=== PATIENT | male | born 1940 | race Caucasian/White ===

== ENCOUNTER 2016-12-09 09:14 | Outpatient (CLI) | payer MEDICARE, BC | END 2016-12-09 09:15 | LOC: OUT 09:14 | PROVIDERS: ATTEND Colon & Rectal Surgery | DX: Z98.890 Other specified postprocedural states (principal) | CPT/HCPCS: G0463 ==

== ENCOUNTER 2016-12-17 08:25 | Outpatient (CLI) | payer MEDICARE, BC ==
[2016-12-17 08:52] LABS: BASOPHILS % 0.5 (0.0-1.5); EOSINOPHILS % 0.5 % (0.0-6.8); MEAN CORPUSCULAR HEMOGLOBIN 22.5 pg (28.0-34.0); MEAN CORPUSCULAR VOLUME 81.6 fl (80.0-100.0); MONOCYTES % 4.3 % (0.0-11.0); NEUTROPHILS # 6.3 # k/uL (1.4-7.7)
[2016-12-17 09:30] LABS: ANISOCYTOSIS 1+ (NEGATIVE)
== END 2016-12-17 09:36 ==
LOC: LAB 08:25
PROVIDERS: ATTEND Nurse Practitioner Family
DX: C18.2 Malignant neoplasm of ascending colon (principal)
CPT/HCPCS: 36415; 85025

== ENCOUNTER 2019-05-25 15:12 | Emergency (ER) | payer MEDICARE, BC ==
[2019-05-25] MEDS ORDERED: DIPH,PERTUSS(ACELL),TET VAC/PF 0.5 ML DISP.SYRIN IM ONE (15:24)
[2019-05-25 15:25] VITALS: BP 155/76
--- NOTE | 2019-05-25 15:32 | ED Physician Documentation ---
General Adult - HISTORIAN Historian: patient - HPI Stated Complaint: Lac on head Chief Complaint: Laceration/Recheck/Suture Additional Information: Patient presents to ED with laceration to head. 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 Patient sustained a 5 cm L-shaped laceration to left parietal area. He denies loss of consciousness or being on blood thinners. Onset: minutes (20) Timing: still present Severity: moderate - ROS CONST: no problems EYES/ENT: none CVS/RESP: none GI/: none MS/SKIN/LYMPH: none NEURO/PSYCH: denies: headache, dizziness - PAST HX Past History: hypertension Other History: none Surgeries/Procedures: none Allergies/Adverse Reactions: Allergies Allergy/AdvReac Type Severity Reaction Status Date / Time No Known Allergies Allergy Verified 05/25/19 15:24 Home Medications: Ambulatory Orders Medication Instructions Recorded Lisinopril 1 tab PO DAILY 05/25/19 Omeprazole 1 cap PO DAILY 05/25/19 hydroCHLOROthiazide [Hydrodiuril] 1 tab PO DAILY 05/25/19 - SOCIAL HX Smoking History: non-smoker Alcohol Use: none Drug Use: none - FAMILY HX Family History: No - VITAL SIGNS Vital Signs: Vital Signs Temp Pulse Resp BP Pulse Ox 96.5 F L 46 L 19 155/76 96 05/25/19 15:22 05/25/19 15:22 05/25/19 15:22 05/25/19 15:22 05/25/19 15:22 - REVIEWED ASSESSMENTS Nursing Assessment Reviewed: Yes Vitals Reviewed: Yes ED Results Lab/Radiology - Orders Orders: ED Orders Category Date Time Status Cleanse with NS and Chlorhexid 1T Care 05/25/19 15:28 Ordered [place] 1T Care 05/25/19 15:24 Ordered Diph,Pertuss(Acell),Tet Vac/Pf [Adacel] Med 05/25/19 15:24 Once 0.5 ml IM .ONCE ONE General Adult Physical Exam - PHYSICAL EXAM GENERAL APPEARANCE: no distress EENT: other (5 cm laceration left parietal ) RESPIRATORY: no resp distress, breath sounds normal CVS: reg rate & rhythm, heart sounds normal ABDOMEN: soft, normal bowel sounds BACK: normal inspection SKIN: warm/dry EXTREMITIES: non-tender NEURO: oriented X3, motor nml, mood/affect nml Discharge Clincal Impression: Scalp laceration Qualifiers: Encounter type: initial encounter Qualified Code(s): S01.01XA - Laceration without foreign body of scalp, initial encounter Referrals: Adia Golden MD [STAFF PHYSICIAN] - 2 Days Additional Instructions: 1. Wash laceration twice daily with antibacterial soap. Apply triple antibiotic ointment twice daily. 2. Follow up with PCP in 7-10 days for staple removal. 3. Return to ER for new or worsening symptoms Condition: Stable Disposition: 01 HOME, SELF-CARE Decision to Admit: NO Date of Decison to Admit: 05/25/19 Decision Time: 15:41
== END 2019-05-25 15:46 | disposition home or self-care (01) ==
LOC: ED 15:12
DX: S01.01XA Laceration without foreign body of scalp, initial encounter (principal); W22.8XXA Striking against or struck by other objects, initial encounter; Y93.89 Activity, other specified
CPT/HCPCS: 90471; 90715; 99282; 99284